=== PATIENT | female | born 1960 | race Caucasian/White ===

== ENCOUNTER 2017-12-01 19:16 | Inpatient (IN) | payer OTHER ==
[~2017-12-01] VITALS: Ht 165.1 cm; Wt 115.1 kg
[~2017-12-01 19:16] MED LIST: ALBU90OI INH; AMIT50; Amoxicillin500 MG PO; Antivert25 MG PO; BUPR150ER PO; BUSP15 PO; Bactrim Ds Tab1 EACH PO; Bentyl20 MG; Bentyl20 MG PO; CALCA500CH PO; CEPH500 PO; DIAZ10; DICY20; DIPH50 PO; ESCI20 PO; ESOM20; GLIM4 PO; HYDACE10B PO; HYDMOR2 PO; HYDR1TAB94 PO; HYOSCYAMINE0.375 MG PO; IBUP800 PO; LEVFLO500 PO; LORA1 PO; LOSA25 PO; LOSA50 PO; METO10 PO; NAPR550 PO; Naprosyn500 MG PO; Norco 10-325 T1 EACH PO; Norco 5-325 Ta1 EACH PO; OXYACE5T; OXYB5 PO; OXYC10TA19 PO; Omeprazole20 M1 PO; PANT40; PRED10 PO; PREG50 PO; PROM25; PROP80ER PO; Percocet 5-3251 EACH PO; Prednisone20 MG PO; RXTRAM50 PO; SERT50; SUCR1 PO; SUMA25 PO; TRAM50 PO; VENL75ER PO; Zofran Odt4 MG PO
[2017-12-01 20:33] LABS: BASOPHILS ABSOLUTE AUTO 0.02 K/mm3 (0.00-0.23); BASOPHILS PERCENT AUTO 0 % (0-2); EOSINOPHILS ABSOLUTE AUTO 0.04 K/mm3 (0.00-0.68); EOSINOPHILS PERCENT AUTO 0 % (0-6); Hematocrit 42.5 % (33.0-51.0); Hemoglobin 13.8 g/dL (11.5-16.0); IMMATURE GRAN ABSOLUTE AUTO 0.06 K/mm3 (0.00-0.10); IMMATURE GRAN PERCENT AUTO 0 % (0-1); LYMPHOCYTES ABSOLUTE AUTO 1.32 K/mm3 (0.84-5.20); LYMPHOCYTES PERCENT AUTO 10 % (21-46); MONOCYTES ABSOLUTE AUTO 0.77 K/mm3 (0.16-1.47); MONOCYTES PERCENT AUTO 6 % (4-13); Mean Corpuscular HGB 28.7 pg (26.0-34.0); Mean Corpuscular HGB Conc 32.5 g/dL (31.5-36.5); Mean Corpuscular Volume 88 fL (80-100); Mean Platelet Volume 10.6 fL (9.1-12.4); NEUTROPHILS ABSOLUTE AUTO 11.29 K/mm3 (1.96-9.15); NEUTROPHILS PERCENT AUTO 84 % (41-73); Platelet Count 183 K/mm3 (150-400); Red Blood Cell Count 4.81 M/mm3 (3.80-5.20)
[2017-12-01 20:47] LABS: Source, Urine Catheter
[2017-12-01 20:49] LABS: Alanine Aminotransfer (ALT/SGP 29 U/L (12-78); Albumin, Blood 3.2 g/dL (3.4-5.0); Albumin/Globulin Ratio 0.7 (0.8-1.8); Alk Phos 112 U/L (50-136); Anion Gap 8 mmol/L (6-16); Aspartate Aminotrans (AST/SGOT 26 U/L (12-37); Bilirubin, Total 0.4 mg/dL (0.1-1.0); Blood Urea Nitrogen 18 mg/dL (8-24); Bun/Creatinine Ratio 18.8 (12.0-20.0); CO2, Blood 27 mmol/L (21-32); Calcium, Blood 9.1 mg/dL (8.5-10.1); Chloride, Blood 105 mmol/L (98-108); Creatinine, Blood 0.96 mg/dL (0.40-1.00); Globulin, Blood 4.6 g/dL (2.2-4.0); Glomerular Filtration Rate >60 (60-); Glucose, Blood 190 mg/dL (70-99); Sodium, Blood 140 mmol/L (136-145); Total Protein, Blood 7.8 g/dL (6.4-8.2)
[2017-12-01 20:54] LABS: Appearance, Urine Clear (Clear); Bilirubin, Urine Neg (Neg); Blood, Urine Neg (Neg); Color, Urine Yellow (P-Yellow); Glucose Qualitative, Urine Neg (Neg); Ketones, Urine Neg (Neg); Leukocyte Esterase, Urine Neg (Neg); Nitrite, Urine Neg (Neg); Protein, Urine 1+ (Neg); Urobilinogen, Urine NORM (Normal)
[2017-12-02 05:01] LABS: CHOL/HDL RATIO 3.9; Cholesterol 146 mg/dL (50-200); HDL Cholesterol 37 mg/dL (>39); Low Density Lipoprotein Chol 72 mg/dL (0-110); Triglycerides 184 mg/dL (30-160); Very Low Density Lipoprot Chol 36 mg/dL (6-32)
[2017-12-02 14:20] LABS: Alanine Aminotransfer (ALT/SGP 28 U/L (12-78); Albumin, Blood 2.9 g/dL (3.4-5.0); Albumin/Globulin Ratio 0.7 (0.8-1.8); Alk Phos 110 U/L (50-136); Anion Gap 10 mmol/L (6-16); Aspartate Aminotrans (AST/SGOT 33 U/L (12-37); Bilirubin, Total 0.5 mg/dL (0.1-1.0); Blood Urea Nitrogen 14 mg/dL (8-24); Bun/Creatinine Ratio 17.4 (12.0-20.0); CO2, Blood 27 mmol/L (21-32); Calcium, Blood 8.6 mg/dL (8.5-10.1); Chloride, Blood 106 mmol/L (98-108); Globulin, Blood 4.1 g/dL (2.2-4.0); Glomerular Filtration Rate >60 (60-); Glucose, Blood 132 mg/dL (70-99); Potassium, Blood 3.3 mmol/L (3.5-5.5); Sodium, Blood 143 mmol/L (136-145)
[2017-12-03 04:22] LABS: BASOPHILS ABSOLUTE AUTO 0.01 K/mm3 (0.00-0.23); BASOPHILS PERCENT AUTO 0 % (0-2); EOSINOPHILS ABSOLUTE AUTO 0.11 K/mm3 (0.00-0.68); EOSINOPHILS PERCENT AUTO 1 % (0-6); Hematocrit 38.6 % (33.0-51.0); Hemoglobin 12.5 g/dL (11.5-16.0); IMMATURE GRAN ABSOLUTE AUTO 0.03 K/mm3 (0.00-0.10); IMMATURE GRAN PERCENT AUTO 0 % (0-1); LYMPHOCYTES ABSOLUTE AUTO 2.28 K/mm3 (0.84-5.20); LYMPHOCYTES PERCENT AUTO 23 % (21-46); MONOCYTES ABSOLUTE AUTO 0.82 K/mm3 (0.16-1.47); MONOCYTES PERCENT AUTO 8 % (4-13); Mean Corpuscular HGB 28.5 pg (26.0-34.0); Mean Corpuscular HGB Conc 32.4 g/dL (31.5-36.5); Mean Corpuscular Volume 88 fL (80-100); Mean Platelet Volume 10.5 fL (9.1-12.4); NEUTROPHILS ABSOLUTE AUTO 6.71 K/mm3 (1.96-9.15); NEUTROPHILS PERCENT AUTO 67 % (41-73); Platelet Count 154 K/mm3 (150-400); RDW Standard Deviation 41.5 fL (35.1-46.3); Red Blood Cell Count 4.39 M/mm3 (3.80-5.20); White Blood Cell Count 9.96 K/mm3 (4.00-11.30)
== END 2017-12-03 18:38 | disposition home or self-care (01) | DRG 69 ==
LOC: ER 19:16 → MEDS 19:17 → ENPENDDIS 12-03 17:31 → MEDS 12-03 18:38
PROVIDERS: Emergency Medicine; Internal Medicine
DX: G45.9 Transient cerebral ischemic attack, unspecified (principal); Z68.41 Body mass index [BMI] 40.0-44.9, adult; M79.7 Fibromyalgia; F41.9 Anxiety disorder, unspecified; J44.9 Chronic obstructive pulmonary disease, unspecified; F43.10 Post-traumatic stress disorder, unspecified; F41.0 Panic disorder [episodic paroxysmal anxiety]; F17.210 Nicotine dependence, cigarettes, uncomplicated; E11.9 Type 2 diabetes mellitus without complications; I10 Essential (primary) hypertension; E66.9 Obesity, unspecified; R40.2412 Glasgow coma scale score 13-15, at arrival to emergency department; Z79.84 Long term (current) use of oral hypoglycemic drugs
CPT/HCPCS: 36415; 70450; 70551; 80053; 80061; 82947; 85025; 93005; 93010; 93880; 94760; 97116; 97162; 97166; 97535; 99285-25; G8978; G8979; G8987; G8988; G8989; J2405

== ENCOUNTER 2021-01-12 13:45 | Emergency (ER) | payer OTHER ==
[2021-01-13] MEDS ORDERED: SEMGLEE PE100 UNIT/1 SC (14:52)
[2021-01-13] MEDS ORDERED: CYMBALTA30 M2 PO ×2 (14:53→14:55)
[2021-01-13] MEDS ORDERED: HYDROCODONE-AC1 EAC7 PO (14:53)
[2021-01-13] MEDS ORDERED: BUPR150ER PO ×2 (14:53→14:57)
[2021-01-13] MEDS ORDERED: PREG75 PO (14:54)
[2021-01-13] MEDS ORDERED: IMITREX50 M2 PO (14:54)
[2021-01-13] MEDS ORDERED: MORP15ER PO (14:54)
[2021-01-13] MEDS ORDERED: ATOR40TA PO (14:54)
[2021-01-13] MEDS ORDERED: OXYB5 PO ×2 (14:55)
[2021-01-13] MEDS ORDERED: OMEP20ER PO (14:56)
[2021-01-13] MEDS ORDERED: PROPRANOLOL HCL80 MG PO (14:56)
[2021-01-13] MEDS ORDERED: LOSARTAN POTAS100 M1 PO (14:56)
[2021-01-13] MEDS ORDERED: Hydroxyzine HCl50 MG PO (14:57)
[2021-01-13] MEDS ORDERED: Bentyl10 MG PO (14:58)
== END 2021-01-12 15:56 | disposition home or self-care (01) ==
LOC: ER 13:45
DX: U07.1 COVID-19 (principal); J44.9 Chronic obstructive pulmonary disease, unspecified; Z79.899 Other long term (current) drug therapy
CPT/HCPCS: 99282; J1100

== ENCOUNTER 2021-01-13 10:43 | Inpatient (IN) | payer OTHER ==
[~2021-01-13] VITALS: Ht 165.1 cm; Wt 93.6 kg
[2021-01-13 11:29] LABS: Hematocrit 46.8 % (33.0-51.0); Hemoglobin 15.8 g/dL (11.5-16.0); Mean Corpuscular HGB 27.7 pg (26.0-34.0); Mean Corpuscular HGB Conc 33.8 g/dL (31.5-36.5); Mean Corpuscular Volume 82 fL (80-100); Mean Platelet Volume 10.9 fL (9.1-12.4); Platelet Count 205 K/mm3 (150-400); RDW Coefficient Variation 12.7 % (11.7-14.2); RDW Standard Deviation 38.3 fL (35.1-46.3); White Blood Cell Count 12.68 K/mm3 (4.00-11.30)
[2021-01-13 11:45] LABS: Alanine Aminotransfer (ALT/SGP 25 U/L (12-78); Albumin, Blood 2.3 g/dL (3.4-5.0); Albumin/Globulin Ratio 0.4 (0.8-1.8); Alk Phos 108 U/L (50-136); Anion Gap 12 mmol/L (6-16); Aspartate Aminotrans (AST/SGOT 29 U/L (12-37); Bilirubin, Total 0.6 mg/dL (0.1-1.0); Blood Urea Nitrogen 30 mg/dL (8-24); Bun/Creatinine Ratio 18.3 (12.0-20.0); CO2, Blood 25 mmol/L (21-32); Calcium, Blood 8.8 mg/dL (8.5-10.1); Chloride, Blood 95 mmol/L (98-108); Creatinine, Blood 1.64 mg/dL (0.40-1.00); Globulin, Blood 5.4 g/dL (2.2-4.0); Glomerular Filtration Rate 32 (60-); Glucose, Blood 513 mg/dL (70-99); Magnesium, Blood 2.7 mg/dL (1.6-2.4); Potassium, Blood 3.7 mmol/L (3.5-5.5); Sodium, Blood 132 mmol/L (136-145); Total Protein, Blood 7.7 g/dL (6.4-8.2); Troponin I <0.015 ng/mL (0.000-0.040)
[2021-01-13 11:48] LABS: PO2 Arterial 65.8 mmHg (80-100); pH Blood Arterial 7.31 (7.35-7.45)
[2021-01-13 12:14] LABS: BAND PERCENT MAN 9 % (0-8); BASOPHILS PERCENT MAN 0 % (0-2); EOSINOPHILS PERCENT MAN 0 % (0-6); LYMPHOCYTES ABSOLUTE MAN 1.14 K/mm3 (0.84-5.20); LYMPHOCYTES PERCENT MAN 9 % (21-46); MONOCYTES ABSOLUTE MAN 0.76 K/mm3 (0.16-1.47); MONOCYTES PERCENT MAN 6 % (4-13); NEUTROPHILS ABSOLUTE MAN 10.77 K/mm3 (1.96-9.15); SEG NEUTROPHILS PERCENT MAN 76 % (41-73); TOTAL CELLS COUNTED 100
[2021-01-13 14:37] LABS: Bicarbonate Venous 21.9 mmol/L (24.0-30.0); PCO2 Venous 55.6 mmHg (38-42); PO2 Venous 101 mmHg (38-42)
[2021-01-13 14:39] LABS: pH Blood Venous 7.26 (7.34-7.37)
[2021-01-13] MEDS ORDERED: SEMGLEE PE100 UNIT/1 SC (14:52)
[2021-01-13] MEDS ORDERED: HYDROCODONE-AC1 EAC7 PO (14:53)
[2021-01-13] MEDS ORDERED: BUPR150ER PO ×2 (14:53→14:57)
[2021-01-13] MEDS ORDERED: CYMBALTA30 M2 PO ×2 (14:53→14:55)
[2021-01-13] MEDS ORDERED: ATOR40TA PO (14:54)
[2021-01-13] MEDS ORDERED: IMITREX50 M2 PO (14:54)
[2021-01-13] MEDS ORDERED: MORP15ER PO (14:54)
[2021-01-13] MEDS ORDERED: PREG75 PO (14:54)
[2021-01-13] MEDS ORDERED: OXYB5 PO ×2 (14:55)
[2021-01-13] MEDS ORDERED: LOSARTAN POTAS100 M1 PO (14:56)
[2021-01-13] MEDS ORDERED: OMEP20ER PO (14:56)
[2021-01-13] MEDS ORDERED: PROPRANOLOL HCL80 MG PO (14:56)
[2021-01-13] MEDS ORDERED: Hydroxyzine HCl50 MG PO (14:57)
[2021-01-13] MEDS ORDERED: Bentyl10 MG PO (14:58)
[2021-01-13 15:12] LABS: Source, Urine Catheter
[2021-01-13 16:10] LABS: Base Excess Venous -2.9 mmol/L; Bicarbonate Venous 21.6 mmol/L (24.0-30.0); PCO2 Venous 49.9 mmHg (38-42); PO2 Venous 186 mmHg (38-42); pH Blood Venous 7.29 (7.34-7.37)
[2021-01-13 16:32] LABS: Appearance, Urine Cloudy (Clear); Bilirubin, Urine Neg (Neg); Blood, Urine 4+ (Neg); Color, Urine Yellow (P-Yellow); Glucose Qualitative, Urine 4+ (Neg); Ketones, Urine 2+ (Neg); Leukocyte Esterase, Urine Neg (Neg); Nitrite, Urine Neg (Neg); Protein, Urine 3+ (Neg); Specific Gravity, Urine 1.025 (1.003-1.022); Urobilinogen, Urine NORM (Normal)
[2021-01-13 16:54] LABS: Amorphous Light (0-Heavy); Bacteria Many /hpf; Red Blood Cells, Urine 0-2 /hpf (0-2); Squamous Epithelial Cells Few /hpf (Few)
[2021-01-13 18:47] LABS: Ferritin, Serum 1112 ng/mL (8-252)
[2021-01-13 19:06] LABS: C-Reactive Protein, High Sens. >190.000 mg/L (0.000-3.000)
[2021-01-13 22:07] LABS: Source, Urine Catheter
[2021-01-13 22:10] LABS: Bilirubin, Urine Neg (Neg); Blood, Urine 5+ (Neg); Glucose Qualitative, Urine 4+ (Neg); Ketones, Urine 1+ (Neg); Leukocyte Esterase, Urine Neg (Neg); Nitrite, Urine Neg (Neg); Protein, Urine 3+ (Neg); Specific Gravity, Urine 1.025 (1.003-1.022); Urobilinogen, Urine NORM (Normal)
[2021-01-13 22:13] LABS: Appearance, Urine Clear (Clear); Color, Urine Yellow (P-Yellow)
[2021-01-13 22:16] LABS: Red Blood Cells, Urine 0-2 /hpf (0-2)
[2021-01-13 22:17] LABS: Amorphous Light (0-Heavy); Bacteria Mod /hpf; Squamous Epithelial Cells Not Seen /hpf (Few)
[2021-01-13 22:18] LABS: Mucus Light (0-Heavy); Uric Acid Crystals Few /hpf
[2021-01-13 22:47] LABS: U Amphetamine Screen Not Detected; U Barbituate Screen Not Detected; U Benzodiazapine Screen Not Detected; U Buprenorphine Screen Not Detected; U Cannabinoids Screen Not Detected; U Cocaine Screen Not Detected; U Methadone Screen Not Detected; U Methamphetamine Screen Not Detected; U Opiates Screen DETECTED; U Oxycodone Screen Not Detected; U Phencyclidine Screen Not Detected; U Propoxyphene Screen Not Detected
[2021-01-14 04:01] LABS: BASOPHILS ABSOLUTE AUTO 0.02 K/mm3 (0.00-0.23); BASOPHILS PERCENT AUTO 0 % (0-2); EOSINOPHILS PERCENT AUTO 0 % (0-6); Hematocrit 43.3 % (33.0-51.0); Hemoglobin 14.4 g/dL (11.5-16.0); IMMATURE GRAN ABSOLUTE AUTO 0.05 K/mm3 (0.00-0.10); IMMATURE GRAN PERCENT AUTO 1 % (0-1); LYMPHOCYTES ABSOLUTE AUTO 0.76 K/mm3 (0.84-5.20); LYMPHOCYTES PERCENT AUTO 8 % (21-46); MONOCYTES ABSOLUTE AUTO 0.69 K/mm3 (0.16-1.47); MONOCYTES PERCENT AUTO 7 % (4-13); Mean Corpuscular HGB 27.5 pg (26.0-34.0); Mean Corpuscular HGB Conc 33.3 g/dL (31.5-36.5); Mean Corpuscular Volume 83 fL (80-100); Mean Platelet Volume 10.7 fL (9.1-12.4); NEUTROPHILS PERCENT AUTO 84 % (41-73); Platelet Count 200 K/mm3 (150-400); RDW Standard Deviation 39.1 fL (35.1-46.3); Red Blood Cell Count 5.23 M/mm3 (3.80-5.20); White Blood Cell Count 9.32 K/mm3 (4.00-11.30)
[2021-01-14 04:26] LABS: International Normalized Ratio 1.01; Prothrombin Time Results 10.9 Sec (9.7-11.5)
[2021-01-14 04:29] LABS: Albumin/Globulin Ratio 0.4 (0.8-1.8); Bilirubin, Total 0.3 mg/dL (0.1-1.0); Bun/Creatinine Ratio 31.5 (12.0-20.0); Calcium, Blood 8.8 mg/dL (8.5-10.1); Creatinine, Blood 1.11 mg/dL (0.40-1.00); Globulin, Blood 4.9 g/dL (2.2-4.0); Potassium, Blood 3.4 mmol/L (3.5-5.5); Total Protein, Blood 6.9 g/dL (6.4-8.2)
[2021-01-14 04:35] LABS: PCO2 Arterial 44.3 mmHg (35-45); PO2 Arterial 61.1 mmHg (80-100)
--- NOTE | 2021-01-14 06:46 | NUR ---
KINESIOLOGY PROFESSOR SUMMARY PT ARRIVED TO THE UNIT CONFUSED BUT ALERT. PT KNOWS WHERE SHE IS BUT NOT SURE WHY SHE IS HERE. BP HAS BEEN WNL AND STABLE THIS SHIFT. TELE SHOWING SR 60'S W OCCASIONAL SB IN THE HIGH 50'S. O2 SATS >92% ON 3L OXYMIZER. INSULIN GTT TITRATED TO 6 THIS AM AND D5W 1/2NS STARTED PER ORDER NOW THAT CBG'S ARE <25O BUT INSULIN GTT IS LEFT ON PER ORDER. WILL REPORT TO ONCOMING RN.
--- NOTE | 2021-01-14 07:30 | NUR ---
ASSUMED CARE: PT RESTING IN BED ON 3L NC. INSULIN GTT AT 6UNITS WT D5 1/2 RUNNING. PT IS AWAKE AND TALKING TO STAFF, ASKING WHEN SHE CAN EAT. INFORMED HER THAT WE ARE WAITING FOR PHYSICIAN TO COME SEE HER.
--- NOTE | 2021-01-14 09:51 | NUR ---
DR SALTER STATES PT CAN START TRANSITIONING TO SC INSULIN, GAVE ONE TIME ORDER FOR SEMGLEE AND STATES SHE WILL PUT IN MAINTENANCE ORDERS. PT CURRENTLY ON 3L NC AND STATES SHE CAN BE MEDICAL STATUS ONCE IV INSULIN DC'D. AUTOMOBILE MECHANIC ASSISTANT AWARE
--- NOTE | 2021-01-14 17:28 | NUR ---
SHIFT SUMMARY: PT CURRENTLY SATTING LOW 90S ON 2L OXYMIZER. INSULIN GTT OFF. HIGH CS FOR INSULIN PER ORDERS DUE TO EVENING BLOOD SUGAR BEING OVER 400. PT IS CURRENTLY MEDICAL STATUS WHEN BED AVAILABLE. NO FURTHER NEEDS AT THIS TIME.
--- NOTE | 2021-01-14 21:41 | NUR ---
PROVIDER NOTIFIED PT HAD 2100 CBG OF 378. 6 UNITS HUMALIN AND 60 UNITS SEMGLEE WERE GIVEN PER ORDER. PROVIDER MESERET WAS NOTIFIED OF THIS AND INSTRUCTED THIS RN THAT THOSE DOSES OF INSULIN WOULD SUFFICE AND TO KEEP THE PT NPO EXCEPT FOR WATER UNTIL THE AM.
[2021-01-15 04:42] LABS: BASOPHILS ABSOLUTE AUTO 0.01 K/mm3 (0.00-0.23); BASOPHILS PERCENT AUTO 0 % (0-2); EOSINOPHILS PERCENT AUTO 0 % (0-6); Hematocrit 41.6 % (33.0-51.0); Hemoglobin 14.1 g/dL (11.5-16.0); IMMATURE GRAN ABSOLUTE AUTO 0.05 K/mm3 (0.00-0.10); IMMATURE GRAN PERCENT AUTO 1 % (0-1); LYMPHOCYTES PERCENT AUTO 13 % (21-46); MONOCYTES ABSOLUTE AUTO 0.72 K/mm3 (0.16-1.47); MONOCYTES PERCENT AUTO 11 % (4-13); Mean Corpuscular HGB Conc 33.9 g/dL (31.5-36.5); Mean Corpuscular Volume 83 fL (80-100); Mean Platelet Volume 10.8 fL (9.1-12.4); NEUTROPHILS ABSOLUTE AUTO 4.74 K/mm3 (1.96-9.15); NEUTROPHILS PERCENT AUTO 75 % (41-73); Platelet Count 208 K/mm3 (150-400); RDW Standard Deviation 39.2 fL (35.1-46.3); Red Blood Cell Count 5.04 M/mm3 (3.80-5.20); White Blood Cell Count 6.32 K/mm3 (4.00-11.30)
[2021-01-15 05:02] LABS: Anion Gap 6 mmol/L (6-16); Blood Urea Nitrogen 30 mg/dL (8-24); Bun/Creatinine Ratio 43.6 (12.0-20.0); CO2, Blood 28 mmol/L (21-32); Chloride, Blood 104 mmol/L (98-108); Creatinine, Blood 0.69 mg/dL (0.40-1.00); Glomerular Filtration Rate >60 (60-); Glucose, Blood 298 mg/dL (70-99); Potassium, Blood 3.9 mmol/L (3.5-5.5); Sodium, Blood 138 mmol/L (136-145)
--- NOTE | 2021-01-15 05:53 | NUR ---
REJECT OPENER SUMMARY PT IS AXO X4 THIS SHIFT. PT MAINTAINING O2 SATS >92% ON 2L VIA OXYMIZER THIS SHIFT. PT VERY TIRED THIS SHIFT SLEEPING MOST OF THE NIGHT BUT EASILY AROUSABLE W SPEECH AND REGULAR RESPIRATIONS. 2100 CBG WAS 378 SO PROVIDER WAS CONTACTED AFTER INSULIN GIVEN PER EMAR, SEE PREVIOUS NOTE. LS DIM IN BASES W OCCASIONAL COUGH. NO TELE BUT HR 58-60'S THIS SHIFT. WILL REPORT TO ONCOMING RN.
--- NOTE | 2021-01-15 11:17 | NUR ---
REPORT CALLED TO ARIAS AGUIRRE, PT TO GO TO ROOM 362
--- NOTE | 2021-01-15 12:16 | NUR ---
DIXON CATHETER REMOVED. PT TOLERATED WELL.
[2021-01-15 13:18] LABS: SARS-Cov-2 (COVID-19) PCR, MMC POSITIVE (NEGATIVE)
--- NOTE | 2021-01-15 17:35 | NUR ---
SHIFT SUMMARY PT AXO, PLEASANT AND COOPERATIVE WITH CAR, CURRENTLY ON 2L VIA NC AT 96%. O2 TURNED DOWN TO 1L AT THIS TIME, WILL REASSESS O2. PT COMPLAINED OF CHRONIC BACK PAIN, SHE STATED THAT LYRICA HELPS A LITTLE, WAS GIVEN THAT PER EMAR, SCHEDULED. DID NOT COMPLAIN OF FURTHER PAIN WITH INSULIN ADMINISTRATION. DESTINY DC'D AT 1216 ABOUT 30-40 ML ABOUT 4 HOURS LATER. BED IN LOW POSITION, CALL LIGHT WITHIN REACH.
[2021-01-16 04:58] LABS: BASOPHILS ABSOLUTE AUTO 0.02 K/mm3 (0.00-0.23); BASOPHILS PERCENT AUTO 0 % (0-2); EOSINOPHILS PERCENT AUTO 0 % (0-6); Hematocrit 42.9 % (33.0-51.0); Hemoglobin 14.5 g/dL (11.5-16.0); IMMATURE GRAN ABSOLUTE AUTO 0.06 K/mm3 (0.00-0.10); IMMATURE GRAN PERCENT AUTO 1 % (0-1); LYMPHOCYTES ABSOLUTE AUTO 0.89 K/mm3 (0.84-5.20); LYMPHOCYTES PERCENT AUTO 14 % (21-46); MONOCYTES ABSOLUTE AUTO 0.77 K/mm3 (0.16-1.47); MONOCYTES PERCENT AUTO 12 % (4-13); Mean Corpuscular HGB 27.6 pg (26.0-34.0); Mean Corpuscular HGB Conc 33.8 g/dL (31.5-36.5); Mean Corpuscular Volume 82 fL (80-100); Mean Platelet Volume 10.8 fL (9.1-12.4); NEUTROPHILS PERCENT AUTO 72 % (41-73); Platelet Count 225 K/mm3 (150-400); RDW Coefficient Variation 12.7 % (11.7-14.2); RDW Standard Deviation 38.4 fL (35.1-46.3); Red Blood Cell Count 5.26 M/mm3 (3.80-5.20); White Blood Cell Count 6.24 K/mm3 (4.00-11.30)
[2021-01-16 05:19] LABS: Alanine Aminotransfer (ALT/SGP 27 U/L (12-78); Albumin, Blood 1.9 g/dL (3.4-5.0); Albumin/Globulin Ratio 0.5 (0.8-1.8); Alk Phos 108 U/L (50-136); Anion Gap 6 mmol/L (6-16); Aspartate Aminotrans (AST/SGOT 20 U/L (12-37); Bilirubin, Total 0.6 mg/dL (0.1-1.0); Blood Urea Nitrogen 25 mg/dL (8-24); Bun/Creatinine Ratio 41.9 (12.0-20.0); CO2, Blood 28 mmol/L (21-32); Calcium, Blood 8.4 mg/dL (8.5-10.1); Chloride, Blood 105 mmol/L (98-108); Globulin, Blood 4.2 g/dL (2.2-4.0); Glomerular Filtration Rate >60 (60-); Glucose, Blood 268 mg/dL (70-99); Potassium, Blood 3.5 mmol/L (3.5-5.5); Sodium, Blood 139 mmol/L (136-145); Total Protein, Blood 6.1 g/dL (6.4-8.2)
--- NOTE | 2021-01-16 08:21 | NUR ---
slept well. no complaints of discomfort until around 0400 when she woke with low back and leg pain. Pain resolved with one oxycodone and 2 tylenol. Harriet is still quite somnolent.
[2021-01-16] MEDS ORDERED: Acetaminophen650 M1 PO (12:03)
[2021-01-16] MEDS ORDERED: BACITRACIN ZIN1 EAC1 TOP (12:04)
[2021-01-16] MEDS ORDERED: ENOX40I SC (12:05)
[2021-01-16] MEDS ORDERED: HUMULIN R100 UNIT/2 SC (12:06)
[2021-01-16] MEDS ORDERED: IPRAT-ALBUT 0.5-3 ML INH (12:07)
[2021-01-16] MEDS ORDERED: DECADRON6 M1 PO (12:08)
[2021-01-16] MEDS ORDERED: LEVOFLOXACIN500 MG PO (12:08)
[2021-01-16] MEDS ORDERED: VISBIOME 112.51 EACH PO (12:09)
--- NOTE | 2021-01-16 14:24 | NUR ---
DISCHARGE SUMMARY PT DISCHARGE TO FACILITY THIS SHIFT AT APPROX 1418. PT TRANSPORTED TO [facility]IA AMBULANCE SERVICES. REPORT GIVEN TO NURSE TERESITA VIA PHONE CALL. PT AAOX4, ABLE TO MAKE NEEDS KNOWN. SBA TO BSC. PT VERBALIZED UNDERSTANDING OF DISCHARGE ORDERS AND EDUCATION. NO COMPLAINTS OR CONCERNS NOTED FROM PATIENT PRIOR TO DISCHARGE. DISCHARGE PACKET GIVEN TO PATIENT PRIOR TO DISCHARGE. IV LINE DISCONTINUED PRIOR TO DISCHARGE.
== END 2021-01-16 14:25 | DRG 871 ==
LOC: ER 10:43 → PCU 15:31 → ERHOLD 15:31 → PCU 01-14 00:42 → MEDS 01-15 11:34 → ENPENDDIS 01-16 12:07 → MEDS 01-16 14:25
PROVIDERS: Internal Medicine; Internal Medicine Critical Care Medicine; Student in an Organized Health Care Education/Training Program; ADMIT Hospitalist
PROC: 8E0ZXY6 Isolation (ICD-10-PCS; principal; 2021-01-13)
PROC: 3E0333Z Introduction of Anti-inflammatory into Peripheral Vein, Percutaneous Approach (ICD-10-PCS; 2021-01-13)
DX: A41.89 Other specified sepsis (principal); U07.1 COVID-19; J96.01 Acute respiratory failure with hypoxia; J15.212 Pneumonia due to Methicillin resistant Staphylococcus aureus; G92 Toxic encephalopathy; N17.9 Acute kidney failure, unspecified; E86.0 Dehydration; E11.65 Type 2 diabetes mellitus with hyperglycemia; F41.0 Panic disorder [episodic paroxysmal anxiety]; F43.10 Post-traumatic stress disorder, unspecified; G89.4 Chronic pain syndrome; M79.7 Fibromyalgia; Z90.710 Acquired absence of both cervix and uterus; Z98.890 Other specified postprocedural states; Z88.5 Allergy status to narcotic agent; Z88.8 Allergy status to other drugs, medicaments and biological substances; Z79.899 Other long term (current) drug therapy; Z79.84 Long term (current) use of oral hypoglycemic drugs; T39.95XA Adverse effect of unspecified nonopioid analgesic, antipyretic and antirheumatic, initial encounter; T43.95XA Adverse effect of unspecified psychotropic drug, initial encounter
CPT/HCPCS: 36415; 36600; 51702; 70450; 71045; 74018; 80048; 80053; 81001; 82728; 82803; 82947; 83036; 83605; 83735; 84145; 84484; 85025; 85379; 85610; 86141; 87040; 87077; 87086; 87186; 93005; 93010; 94640; 94762; 96365-59; 96368; 96375-59; 99285-25; A9270; C9113; J0456; J0696; J1100; J1650; J1815; J2310; J3480; J7030; J7042; J7050; J7120; U0004

== ENCOUNTER 2021-02-15 21:44 | Emergency (ER) | payer OTHER ==
[~2021-02-15] VITALS: Ht 175.3 cm; Wt 91.6 kg
[~2021-02-15 21:44] MED LIST changes: +ATOR40TA PO; +Acetaminophen650 M1 PO; +BACITRACIN ZIN1 EAC1 TOP; +Bentyl10 MG PO; +CYMBALTA30 M2 PO; +DECADRON6 M1 PO; +ENOX40I SC; +HUMULIN R100 UNIT/2 SC; +HYDROCODONE-AC1 EAC7 PO; +Hydroxyzine HCl50 MG PO; +IMITREX50 M2 PO; +IPRAT-ALBUT 0.5-3 ML INH; +LEVOFLOXACIN500 MG PO; +LOSARTAN POTAS100 M1 PO; +MORP15ER PO; +OMEP20ER PO; +PREG75 PO; +PROPRANOLOL HCL80 MG PO; +SEMGLEE PE100 UNIT/1 SC; +VISBIOME 112.51 EACH PO
[2021-02-15] MEDS ORDERED: PREGABALIN PO (22:08)
[2021-02-15] MEDS ORDERED: IMITREX50 M2 PO ×2 (22:08→22:09)
[2021-02-15] MEDS ORDERED: MS CONTIN PO ×2 (22:08→22:09)
== END 2021-02-15 23:23 | disposition home or self-care (01) ==
LOC: ER 21:44
DX: M17.11 Unilateral primary osteoarthritis, right knee (principal); M25.552 Pain in left hip; J44.9 Chronic obstructive pulmonary disease, unspecified; F17.210 Nicotine dependence, cigarettes, uncomplicated; Z88.8 Allergy status to other drugs, medicaments and biological substances; Z88.5 Allergy status to narcotic agent; Z79.899 Other long term (current) drug therapy; Z79.4 Long term (current) use of insulin; W18.30XA Fall on same level, unspecified, initial encounter
CPT/HCPCS: 72170; 73562-RT; 82947; 93005; 93010; 99285-25

== ENCOUNTER → 2023-01-19 | Outpatient (CLI) | payer OTHER ==
[~2023-01-19] MED LIST changes: +MS CONTIN PO; +PREGABALIN PO
[2023-01-19 14:05] LABS: Albumin, Blood 3.3 g/dL (3.4-5.0); Albumin/Globulin Ratio 0.9 (0.8-1.8); Bilirubin, Total 0.3 mg/dL (0.1-1.0); Bun/Creatinine Ratio 19.7 (12.0-20.0); Calcium, Blood 9.2 mg/dL (8.5-10.1); Creatinine, Blood 0.71 mg/dL (0.40-1.00); Globulin, Blood 3.8 g/dL (2.2-4.0); Potassium, Blood 4.3 mmol/L (3.5-5.5); Total Protein, Blood 7.1 g/dL (6.4-8.2)
== END | disposition home or self-care (01) ==
LOC: LAB 13:50 → LAB SHORT 13:50
PROVIDERS: Family Medicine
DX: R60.0 Localized edema (principal)
CPT/HCPCS: 80053; 83880

== ENCOUNTER 2023-02-15 17:16 | Observation (INO) | payer OTHER ==
[~2023-02-15] VITALS: Ht 167.6 cm; Wt 93.3 kg
[2023-02-15 18:45] LABS: BASOPHILS ABSOLUTE AUTO 0.04 K/mm3 (0.00-0.23); BASOPHILS PERCENT AUTO 1 % (0-2); EOSINOPHILS ABSOLUTE AUTO 0.12 K/mm3 (0.00-0.68); EOSINOPHILS PERCENT AUTO 2 % (0-6); Hematocrit 46.8 % (33.0-51.0); Hemoglobin 16.2 g/dL (11.5-16.0); IMMATURE GRAN ABSOLUTE AUTO 0.05 K/mm3 (0.00-0.10); IMMATURE GRAN PERCENT AUTO 1 % (0-1); LYMPHOCYTES PERCENT AUTO 31 % (21-46); MONOCYTES ABSOLUTE AUTO 0.51 K/mm3 (0.16-1.47); MONOCYTES PERCENT AUTO 7 % (4-13); Mean Corpuscular HGB 29.2 pg (26.0-34.0); Mean Corpuscular HGB Conc 34.6 g/dL (31.5-36.5); Mean Corpuscular Volume 84 fL (80-100); NEUTROPHILS ABSOLUTE AUTO 4.62 K/mm3 (1.96-9.15); NEUTROPHILS PERCENT AUTO 60 % (41-73); RDW Coefficient Variation 12.8 % (11.7-14.2); RDW Standard Deviation 39.4 fL (35.1-46.3); Red Blood Cell Count 5.55 M/mm3 (3.80-5.20); White Blood Cell Count 7.74 K/mm3 (4.00-11.30)
[2023-02-15 19:03] LABS: Albumin, Blood 3.3 g/dL (3.4-5.0); Albumin/Globulin Ratio 0.8 (0.8-1.8); Bilirubin, Total 0.5 mg/dL (0.1-1.0); Bun/Creatinine Ratio 13.8 (12.0-20.0); Calcium, Blood 9.4 mg/dL (8.5-10.1); Creatinine, Blood 0.65 mg/dL (0.40-1.00); Globulin, Blood 4.4 g/dL (2.2-4.0); Potassium, Blood 4.3 mmol/L (3.5-5.5); Total Protein, Blood 7.7 g/dL (6.4-8.2)
[2023-02-15 19:15] LABS: Mean Platelet Volume 10.4 fL (9.1-12.4); Platelet Count 209 K/mm3 (150-400)
[2023-02-15] MEDS ORDERED: KLOR-CON 1010 ME9 PO (20:38)
[2023-02-15] MEDS ORDERED: Atarax10 MG PO (20:38)
[2023-02-15] MEDS ORDERED: FURO40 PO (20:38)
[2023-02-15] MEDS ORDERED: ASPI81CH PO (20:39)
[2023-02-15] MEDS ORDERED: Cymbalta20 MG PO (20:39)
[2023-02-15] MEDS ORDERED: LOSARTAN POTAS100 MG PO (20:40)
--- NOTE | 2023-02-15 23:26 | NUR ---
ADMIT NOTE PT TRANSFERRED VIA WC TO BEDSIDE. PT AMBULATED TO HOSPITAL BED. VS TAKEN. ORIENTED PT TO ROOM AND CALL LIGHT. EDUCATED ON FIRE SAFETY. RECIEVED REPORT FROM ZEKE AGUIRRE. WILL CONTINUE TO MONITOR UNTIL SHIFT END.
[2023-02-15 23:27] VITALS: BP 160/87
[2023-02-15 23:55] LABS: Anti-Xa UFH, PHA Monitoring <0.10 IU/mL; Prothrombin Time Results 10.5 Sec (9.7-11.5)
[2023-02-16 03:04] VITALS: BP 139/88
--- NOTE | 2023-02-16 03:09 | NUR ---
CALLED HOSPITALIST PT STATES SHE NEEDS HER LYRICA AND PAIN MEDS OR SHE CANNOT DEAL WITH HER PAIN AND DISCOMFORT. NEW ORDERS IN EMAR
--- NOTE | 2023-02-16 05:23 | NUR ---
SHIFT SUMMARY PT A&O X4, ANXIOUS BUT COOPERATIVE WITH CARE. TELEMETRY: SR 80'S. NO NEW CP OR PRESSURE. PT STATES SHE HAS HAD CHEST PRESSURE THAT STARTED THE FOLLOWING DAY. PT IS CURRENTLY NPO. HEPARIN DRIP RUNNING RATE IS 22.5 OR 15U/KG/HR. PT IS CONTINENT OF URINE AND AMBULATES TO THE BATHROOM WITH 1P ASSIST. USES CANE/WALKER AT BASELINE. TROPONIN TRENDING IN THE RIGHT DIRECTION. PT COMPLAINED OF LEG PAIN. CALLED DR TO GET ORDERS FOR LYRICA WHICH PT TAKES AT HOME. BED KEPT IN THE LOWEST POSITION WITH CALL LIGHT WITHIN REACH.
[2023-02-16 06:38] LABS: Glucose, Blood 174 mg/dL (70-99)
[2023-02-16 07:35] VITALS: BP 164/102
[2023-02-16 15:53] VITALS: BP 123/71
[2023-02-16 20:21] VITALS: BP 134/76
[2023-02-17 03:37] VITALS: BP 122/73
--- NOTE | 2023-02-17 04:44 | NUR ---
SHIFT SUMMARY PT A&O, PLEASANT AND COOPERATIVE WITH CARE. TELEMETRY: SR @ 67. NOW NEW CP OR PRESSURE. PT STATES THAT SHE HAS HAD CHEST PRESSURE FOR 2-3 DAYS. PT CLEARED OF ISOLATION. CALLED DR LEWIS ABOUT Q6 BS ORDER FOR PREVIOUS NPO. PT NO LONGER NPO AND IS ON A CARDIAC DIET. ORDERED FOR PT TO BE AC TID AND TO CHANGE HUMALOG LS TO AC. PT HAS DAY 2 OF STRESS TEST TODAY AND HAS HAD NO CAFFEINE, SAMSON, ECT. VSS. PT TREATED FOR PAIN PER EMAR. PT DENIES ANY NEEDS AT THIS TIME. BED KEPT IN THE LOWEST POSITION WITH CALL LIGHT WITHIN REACH.
[2023-02-17 06:57] LABS: BASOPHILS ABSOLUTE AUTO 0.02 K/mm3 (0.00-0.23); BASOPHILS PERCENT AUTO 0 % (0-2); EOSINOPHILS ABSOLUTE AUTO 0.09 K/mm3 (0.00-0.68); EOSINOPHILS PERCENT AUTO 1 % (0-6); Hematocrit 42.3 % (33.0-51.0); Hemoglobin 14.5 g/dL (11.5-16.0); IMMATURE GRAN ABSOLUTE AUTO 0.04 K/mm3 (0.00-0.10); IMMATURE GRAN PERCENT AUTO 1 % (0-1); LYMPHOCYTES PERCENT AUTO 32 % (21-46); MONOCYTES ABSOLUTE AUTO 0.55 K/mm3 (0.16-1.47); MONOCYTES PERCENT AUTO 8 % (4-13); Mean Corpuscular HGB 29.3 pg (26.0-34.0); Mean Corpuscular HGB Conc 34.3 g/dL (31.5-36.5); Mean Corpuscular Volume 86 fL (80-100); Mean Platelet Volume 9.9 fL (9.1-12.4); NEUTROPHILS ABSOLUTE AUTO 3.89 K/mm3 (1.96-9.15); NEUTROPHILS PERCENT AUTO 57 % (41-73); Platelet Count 176 K/mm3 (150-400); RDW Coefficient Variation 13.1 % (11.7-14.2); RDW Standard Deviation 40.2 fL (35.1-46.3); Red Blood Cell Count 4.95 M/mm3 (3.80-5.20); White Blood Cell Count 6.79 K/mm3 (4.00-11.30)
[2023-02-17 07:13] VITALS: BP 131/85
[2023-02-17 07:28] LABS: Albumin, Blood 2.9 g/dL (3.4-5.0); Albumin/Globulin Ratio 0.7 (0.8-1.8); Bilirubin, Total 0.3 mg/dL (0.1-1.0); Bun/Creatinine Ratio 22.9 (12.0-20.0); Calcium, Blood 8.7 mg/dL (8.5-10.1); Creatinine, Blood 0.61 mg/dL (0.40-1.00); Globulin, Blood 3.9 g/dL (2.2-4.0); Phosphorus, Blood 4.7 mg/dL (2.5-4.9); Total Protein, Blood 6.8 g/dL (6.4-8.2)
[2023-02-17] MEDS ORDERED: RYBELSUS3 MG PO (12:19)
[2023-02-17 15:37] VITALS: BP 135/76
[2023-02-17] MEDS ORDERED: METF500 PO (16:13)
--- NOTE | 2023-02-17 16:58 | NUR ---
PT AWAKE DURING SHIFT REPORT, SITTING UP TO EOB DRINKING WATER. PT NPO FOR REMAINING STRESS TEST THIS AFTERNOON. ALL TEST'S COMPLETED AND NEG WITH NO CONCERNS, PER DR OLIVER. PT CLEAR TO D/C TO HOME. IV D/C'D WNL'S. D/C ORDERS TO BE REVIEWED WITH PT ONCE AGAIN. PT TO CALL FRIEND FOR RIDE AND P/U. NO C/O CP TODAY. BOWEL PREP ORDERED AND GIVEN EARLIER PER EMAR. PT UP INDPENDENTLY TO BTHRM AND IN RM. VISITOR TO EARLIER. PT RESTING QUIETLY WAITING FOR RIDE.
== END 2023-02-17 18:57 | disposition home or self-care (01) ==
LOC: ER 17:16 → MEDS 22:55
PROVIDERS: Family Medicine; Family Medicine Adult Medicine; Physician Assistant; ADMIT Internal Medicine
DX: R07.89 Other chest pain (principal); R79.89 Other specified abnormal findings of blood chemistry; M79.7 Fibromyalgia; R22.43 Localized swelling, mass and lump, lower limb, bilateral; E11.9 Type 2 diabetes mellitus without complications; J44.9 Chronic obstructive pulmonary disease, unspecified; I10 Essential (primary) hypertension; E78.5 Hyperlipidemia, unspecified; Z86.73 Personal history of transient ischemic attack (TIA), and cerebral infarction without residual deficits; Z87.891 Personal history of nicotine dependence; Z88.5 Allergy status to narcotic agent; Z88.8 Allergy status to other drugs, medicaments and biological substances; Z79.82 Long term (current) use of aspirin; Z79.899 Other long term (current) drug therapy
CPT/HCPCS: 36415; 71046; 78452; 80053; 82947; 83036; 83735; 84100; 84484; 85025; 85520; 85610; 93005; 93010; 93017; 93306; 96365; 96366; 99285-25; A9270; A9500; G0008; G0378; J0706; J1644; J2785; Q2036

== ENCOUNTER 2023-03-28 16:51 | Emergency (ER) | payer OTHER ==
[~2023-03-28] VITALS: Ht 177.8 cm; Wt 97.1 kg
[~2023-03-28 16:51] MED LIST changes: +ASPI81CH PO; +Atarax10 MG PO; +Cymbalta20 MG PO; +FURO40 PO; +KLOR-CON 1010 ME9 PO; +LOSARTAN POTAS100 MG PO; +METF500 PO; +RYBELSUS3 MG PO
[2023-03-28 17:12] VITALS: BP 143/90
== END 2023-03-28 19:10 | disposition home or self-care (01) ==
LOC: ER 16:51
DX: M79.651 Pain in right thigh (principal); J44.9 Chronic obstructive pulmonary disease, unspecified; F17.210 Nicotine dependence, cigarettes, uncomplicated; Z88.5 Allergy status to narcotic agent; Z88.8 Allergy status to other drugs, medicaments and biological substances; Z91.018 Allergy to other foods; Z79.84 Long term (current) use of oral hypoglycemic drugs; Z79.82 Long term (current) use of aspirin; Z79.899 Other long term (current) drug therapy
CPT/HCPCS: 93971; 99283-25

== ENCOUNTER → 2024-08-13 | Outpatient (CLI) | payer OTHER | LOC: LAB 14:00 → LAB SHORT 14:00 | DX: N39.46 Mixed incontinence (principal) | CPT/HCPCS: 87086 ==

== ENCOUNTER 2025-04-26 07:10 | Day surgery (SDC) | payer OTHER ==
[~2025-04-26] VITALS: Ht 175.3 cm; Wt 92.5 kg
[2025-04-26] MEDS ORDERED: AMLO5 (07:35)
[2025-04-26] MEDS ORDERED: DULO30 (07:36)
[2025-04-26] MEDS ORDERED: JARDIANCE10 MG (07:36)
[2025-04-26] MEDS ORDERED: BUSP5 (07:36)
[2025-04-26] MEDS ORDERED: HYDCHL25 (07:37)
[2025-04-26] MEDS ORDERED: MORP15ER (07:37)
[2025-04-26] MEDS ORDERED: NITR.4SL (07:38)
[2025-04-26] MEDS ORDERED: POTA8 (07:40)
[2025-04-26] MEDS ORDERED: OMEP20ER (07:40)
[2025-04-26] MEDS ORDERED: RYBELSUS14 MG (07:41)
[2025-04-26] MEDS ORDERED: WEGOVY0.5 MG/0.5 (07:41)
[2025-04-26] MEDS ORDERED: NS 500 ML IV ONE (10:00)
--- NOTE | 2025-04-26 10:24 | NUR ---
04/26/25 ROSA [place] ROSA IF PATIENT STAYS A NURSE SEDATION, SHE WOULD BENEFIT GREATLY FROM A POM MASK - AND ORAL AIRWAY D/T LINGERING SLEEP APNEA AND OBSTRUCTION NOTED DURING THIS CASE. PT REQ 3-6LPM VIA NC AND INTERMITTENT JAW THRUSTS WHEN OPA NOT IN PLACE.
[2025-04-26 10:57] VITALS: BP 130/70
--- NOTE | 2025-04-26 11:01 | NUR ---
04/26/25 1101 Leatha Bailey PT DENIED PAIN AND NAUSEA WHILE IN STEP DOWN. PT SPOKE WITH DR DENTON EXTENSIVELY IN REGARDS TO HER POLYPS AND MASS. PT LEFT WITH NO FURTER QUESTIONS. RN ENCOURAGED PT TO CALL DR DENTON IF SHE HAS EXCESSIVE BLEEDING. PT VOICED SATISFACTION WITH THE CARE TODAY AT [facility].
== END 2025-04-26 10:52 | disposition home or self-care (01) ==
LOC: ORSCSDS 07:10
PROVIDERS: Internal Medicine Gastroenterology
PROC: 0DB98ZX Excision of Duodenum, Via Natural or Artificial Opening Endoscopic, Diagnostic (ICD-10-PCS; principal; 2025-04-26 08:45)
PROC: 0DBK8ZX Excision of Ascending Colon, Via Natural or Artificial Opening Endoscopic, Diagnostic (ICD-10-PCS; principal; 2025-04-26 08:45)
PROC: 0DBM8ZX Excision of Descending Colon, Via Natural or Artificial Opening Endoscopic, Diagnostic (ICD-10-PCS; principal; 2025-04-26 08:45)
PROC: 0DBL8ZX Excision of Transverse Colon, Via Natural or Artificial Opening Endoscopic, Diagnostic (ICD-10-PCS; principal; 2025-04-26 08:45)
DX: Z12.11 Encounter for screening for malignant neoplasm of colon (principal); Z86.0100 Personal history of colon polyps, unspecified; Z86.018 Personal history of other benign neoplasm; R13.10 Dysphagia, unspecified; K31.7 Polyp of stomach and duodenum; K21.9 Gastro-esophageal reflux disease without esophagitis; D12.4 Benign neoplasm of descending colon; D12.3 Benign neoplasm of transverse colon; D12.2 Benign neoplasm of ascending colon; I10 Essential (primary) hypertension; Z86.73 Personal history of transient ischemic attack (TIA), and cerebral infarction without residual deficits; J44.9 Chronic obstructive pulmonary disease, unspecified; K76.0 Fatty (change of) liver, not elsewhere classified; E11.43 Type 2 diabetes mellitus with diabetic autonomic (poly)neuropathy; F33.9 Major depressive disorder, recurrent, unspecified; Z87.891 Personal history of nicotine dependence; Z79.899 Other long term (current) drug therapy; Z79.82 Long term (current) use of aspirin; Z79.84 Long term (current) use of oral hypoglycemic drugs
CPT/HCPCS: 82947; 88305; J2704; J7120